=== PATIENT | female | born 1975 | race African-American/Black ===

== ENCOUNTER 2016-10-15 11:33 | Emergency (ER) | payer OTHER ==
[2016-10-15 11:58] VITALS: BP 128/84; PULSE 88; TEMP 98.3; BMI 32.1
--- NOTE | 2016-10-15 12:21 | PDOC ---
History of Present Illness - General History Source: Patient, Old Records Exam Limitations: No Limitations - History of Present Illness Initial Comments: 10/15/16 12:29 41-year-old female with history of hypertension, diabetes, bipolar disorder, peripheral vascular disease with foot gangrene and history of noncompliance sent from prison today for planned angioplasty of known FSA obstruction with Dr. Oliveros. The patient arrived to the emergency department with plans for OR, upon arrival she refused any interventions and demanded to be discharged. Discussed with Dr. Oliveros, who gave the above history and states the patient has long history of noncompliance and refusal of this procedure, this was actually the third attempt at scheduling. Patient understands full ramifications of not having her surgery, including worsening infection/gangrene, loss of limb, sepsis and . <Loyd Haro - Last Filed: 10/15/16 12:29> <Marfier Hercules - Last Filed: 10/15/16 12:41> - General Chief Complaint: Pain Stated Complaint: PRE-OP (PCP SENT) Time Seen by Provider: 10/15/16 12:21 Past History - Past Medical History Diabetes: Yes HTN: Yes Psychiatric Problems: Yes (depression,bipolar,paranoid schizoph) Other medical history: insomnia,anxeity,pvd - Surgical History Orthopedic Surgery: (rt bka) - Psycho/Social/Smoking Cessation Hx Anxiety: No Suicidal Ideation: No Smoking History: Current every day smoker Have you smoked in the past 12 months: Yes Number of Cigarettes Smoked Daily: 7 Cigars Per Day: 6 Information on smoking cessation initiated: Yes 'Breaking Loose' booklet given: 10/15/16 Hx Alcohol Use: No Drug/Substance Use Hx: No Substance Use Type: None <Loyd Haro - Last Filed: 10/15/16 12:29> <Marifer Hercules - Last Filed: 10/15/16 12:41> - Past Medical History Allergies/Adverse Reactions: Allergies Allergy/AdvReac Type Severity Reaction Status Date / Time Penicillins Allergy Severe Difficulty Verified 10/15/16 11:52 Breathing shellfish derived Allergy Severe Difficulty Verified 10/15/16 11:52 Breathing Home Medications: Ambulatory Orders Ativan 0.5 mg PO DAILY 08/14/16 Ativan 1 mg PO DAILY 08/14/16 Bacitracin DAILY 08/14/16 Cymbalta 60 mg PO DAILY 08/14/16 Depakote 500 mg PO BID 08/14/16 Lactobacillus Acidophilus 1 tab PO DAILY 08/14/16 Levemir Vial 28 units SCJ HS 08/14/16 Loperamide 2 mg PO QID PRN 08/14/16 Melatonin 5 mg PO HS 08/14/16 Milk of Magnesia 30 ml PO QID PRN 08/14/16 Senna 2 tab PO DAILY 08/14/16 Vitamin D3 1,000 units PO DAILY 08/14/16 Zyprexa 5 mg PO DAILY 08/14/16 Review of Systems - Review of Systems Able to Perform ROS?: (refused to answer) <Loyd Haro - Last Filed: 10/15/16 12:29> *Physical Exam - Vital Signs Last Vital Signs Temp Pulse Resp BP Pulse Ox 98.3 F 88 18 128/84 100 10/15/16 11:53 10/15/16 11:53 10/15/16 11:53 10/15/16 11:53 10/15/16 11:53 - Physical Exam Comments: 10/15/16 12:32 REFUSED <Loyd Haro - Last Filed: 10/15/16 12:29> - Vital Signs Last Vital Signs Temp Pulse Resp BP Pulse Ox 98.3 F 88 18 128/84 100 10/15/16 11:53 10/15/16 11:53 10/15/16 11:53 10/15/16 11:53 10/15/16 11:53 <Marifer Hercules - Last Filed: 10/15/16 12:41> Medical Decision Making - Medical Decision Making 10/15/16 12:33 41-year-old female with known foot gangrene from peripheral vascular disease, requires angioplasty and was scheduled with Dr. Oliveros today, sent from prison but now refusing to enter the ED and refusing care. I went to the waiting room to speak to the patient before she arranged for transportation back to the prison, we discussed her illness and pathology and all risks related to not proceeding with the intervention. She understands the scope of risk but is again refusing the angioplasty. She did not let me examine her, she will sign out AGAINST MEDICAL ADVICE. Again, this was discussed with Dr. Oliveros, states the patient has a recurring history of doing this. He will be in touch with the prison staff. Pt to sign out AMA She refused any and all interventions <Loyd Haro - Last Filed: 10/15/16 12:29> - Medical Decision Making 10/15/16 12:40 Report given back to [facility]. Staff is aware. <Marifer Hercules - Last Filed: 10/15/16 12:41> *DC/Admit/Observation/Transfer <Loyd Haro - Last Filed: 10/15/16 12:29> - Attestations Scribe Attestion: 10/15/16 12:41 Documentation prepared by Marifer Hercules, acting as medical office worker for Loyd Haro MD. <Marifer Hercules - Last Filed: 10/15/16 12:41> Diagnosis at time of Disposition: Peripheral vascular disease - Discharge Dispostion Disposition: AGAINST MEDICAL ADVICE - Referrals Referrals: Aleksander Bruno [Primary Care Provider] - - Patient Instructions Additional Instructions: Activity as tolerated. You were sent to the hospital to have a procedure for a clogged artery in your leg. This is affecting the blood flow to your foot. You have decided to not have the procedure as scheduled, so you must sign out against our medical advice. Without this intervention, your infection and gangrene can worsen, you can lose your limb, and the infection can spread and you could potentially . Continue medications as previously prescribed by your physician. You should follow up with your primary doctor as soon as possible regarding today's emergency department visit. Return to the emergency department for any new or concerning symptoms, particularly fevers or chills, pain or swelling, bleeding or pus.
== END 2016-10-15 12:40 | disposition left against medical advice (07) ==
LOC: JER 11:33
DX: I73.89 Other specified peripheral vascular diseases (principal); I10 Essential (primary) hypertension; E11.9 Type 2 diabetes mellitus without complications; F31.9 Bipolar disorder, unspecified; F20.0 Paranoid schizophrenia; F17.210 Nicotine dependence, cigarettes, uncomplicated
CPT/HCPCS: 99281-25

== ENCOUNTER 2019-08-07 12:08 | Emergency (ER) | payer OTHER ==
[2019-08-07 12:20] VITALS: BMI 26.4
[2019-08-07] MEDS ORDERED: DIVALPROEX SODIUM 500 MG TABLET E.C. PO ONE (12:36)
[2019-08-07] MEDS ORDERED: ACETAMINOPHEN 500 MG TABLET (FP) PO ONE (12:36)
--- NOTE | 2019-08-07 12:45 | PDOC ---
History of Present Illness - General Chief Complaint: CVA/TIA Stated Complaint: R/O STROKE Time Seen by Provider: 08/07/19 12:23 History Source: Patient - History of Present Illness Initial Comments: 08/07/19 12:40 44 yo F PMH of HTN, DM, PVD ( s/p below the knee amputation of leg), "blood disorder", TIA, Heart failure presents to ED for "having a stroke". Pt states this morning she had a stroke. She states that she knows because of blurred vision in her eye. she states she also has a headache. pt was not cooperative with obtaining proper history. she states she just doesnt feel right and is also having hematemesis and chest tightness. Past History - Past Medical History Allergies/Adverse Reactions: Allergies Allergy/AdvReac Type Severity Reaction Status Date / Time Penicillins Allergy Severe Difficulty Verified 08/07/19 12:10 Breathing shellfish derived Allergy Severe Difficulty Verified 08/07/19 12:10 Breathing Home Medications: Ambulatory Orders Ativan 1 mg PO DAILY 08/14/16 Cymbalta 60 mg PO DAILY 08/14/16 Depakote 500 mg PO BID 08/14/16 Lactobacillus Acidophilus 1 tab PO DAILY 08/14/16 Levemir Vial 28 units SCJ HS 08/14/16 Loperamide 2 mg PO QID PRN 08/14/16 Melatonin 5 mg PO HS 08/14/16 Milk of Magnesia 30 ml PO QID PRN 08/14/16 Senna 2 tab PO DAILY 08/14/16 Vitamin D3 1,000 units PO DAILY 08/14/16 Zyprexa 5 mg PO DAILY 08/14/16 COPD: No Diabetes: Yes HTN: Yes Psychiatric Problems: Yes (depression,bipolar,paranoid schizoph) - Surgical History Orthopedic Surgery: (rt bka) - Psycho Social/Smoking Cessation Hx Smoking History: Never smoked Have you smoked in the past 12 months: Yes Number of Cigarettes Smoked Daily: 7 Cigars Per Day: 6 Information on smoking cessation initiated: No 'Breaking Loose' booklet given: 10/15/16 Hx Alcohol Use: No Drug/Substance Use Hx: No Substance Use Type: None Review of Systems - Review of Systems Constitutional: Yes: Chills. No: Fever HEENTM: Yes: Eye Pain, Blurred Vision Respiratory: Yes: Shortness of Breath (states she has abdominal pain when she breathes.) Cardiac (ROS): Yes: Chest Tightness ABD/GI: Yes: Nausea, Vomiting, Abdominal cramping, Other (hematochezia ) Musculoskeletal: Yes: Muscle Weakness Neurological: Yes: Headache, Weakness Hematologic/Lymphatic: Yes: Blood Clots *Physical Exam - Vital Signs Last Vital Signs Temp Pulse Resp BP Pulse Ox 98.2 F 87 16 140/75 97 08/07/19 12:10 08/07/19 12:10 08/07/19 12:10 08/07/19 12:10 08/07/19 12:10 - Physical Exam General Appearance: Yes: Nourished, Appropriately Dressed, Obese HEENT: positive: Normal Voice, Symmetrical Respiratory/Chest: positive: Lungs Clear, Normal Breath Sounds. negative: Respiratory Distress, Accessory Muscle Use Cardiovascular: positive: Regular Rhythm, Regular Rate, S1, S2 Gastrointestinal/Abdominal: positive: Normal Bowel Sounds, Soft, Tenderness ( periumbilical ). negative: Distended Extremity: positive: Normal Inspection Integumentary: positive: Normal Color, Dry, Warm Neurologic: positive: Fully Oriented, Normal Response, Other (cranial nerves grossly intact, pt not cooperative with exam but seen moving all extremities and pulling herself up in bed. ). negative: Facial Droop ED Treatment Course - ADDITIONAL ORDERS Additional order review: Laboratory Results 08/07/19 12:16 POC Glucometer 475 08/07/19 12:16 POC Glucometer 475 Medical Decision Making - Medical Decision Making 08/07/19 12:47 44 yo F presents to ED for a " stroke" - no exam suspicion for stroke, pt does not cooperate for stroke scale although CN II-XII grossly intact, seen moving all extremities, no facial droop, no speech slurring. but will CT head , CBC, PT, PTT, INR -CMP, Cardiac profile, EKG. r/o ACS -will give home dose depakote for bipolar -tylenol for pain 08/07/19 13:07 -pt refusing all blood work but amenable to head CT 08/07/19 14:29 -CT results reviewed, moderate atrophy, chronic microvascular changes. no acute intracranial changes. 08/07/19 14:30 Discharge - Discharge Information Problems reviewed: Yes Clinical Impression/Diagnosis: Headache Qualifiers: Headache type: tension-type Headache chronicity pattern: acute headache Intractability: not intractable Qualified Code(s): G44.209 - Tension-type headache, unspecified, not intractable Condition: Good Disposition: HOME - Admission No - Follow up/Referral - Patient Discharge Instructions Patient Printed Discharge Instructions: DI for Headache Additional Instructions: You came into the hospital for a headache. We did a CT of your head showing that you did not have an acute stroke. Please continue to take your home medications as prescribed. Please follow up with your primary care physician within 1 week to monitor your improvement. If you have any new, worsening, or concerning symptoms please return to the ED. - Post Discharge Activity
--- NOTE | 2019-08-07 12:57 | PDOC ---
Attending Attestation - Resident Resident Name: Ira Ornelas - ED Attending Attestation I have performed the following: I have examined & evaluated the patient, The case was reviewed & discussed with the resident, I agree w/resident's findings & plan, Exceptions are as noted - HPI HPI: 08/07/19 12:52 44 F with h/o hypertension, diabetes, bipolar disorder, peripheral vascular disease, schizophrenia, presenting to ED for "stroke". Pt walked into ER stating that she was having a stroke. However, in ED, pt is uncooperative with history and exam. When asked why she believes she is having a stroke, she replied to staff that this was a "silly question" and instructed us to look at her left eye, which has a cataract. Pt refused to answer any additional questions or comply with physical exam. Pt instead requested we shut the curtains so that she could sleep in the stretcher. - Physicial Exam PE: 08/07/19 12:54 "GENERAL: Awake, alert, and fully oriented, in no acute distress. HEAD: No signs of trauma EYES: + L cataract, EOMI ENT: Pt refused exam NECK: Pt refused exam LUNGS: Pt refused exam HEART: Pt refused exam ABDOMEN: Pt refused exam EXTREMITIES: Pt refused exam NEUROLOGICAL: Cranial nerves II through XII intact. 5/5 strength and sensation in all extremities, Normal speech, normal gait SKIN: Warm, Dry, normal turgor, no rashes or lesions noted. - Medical Decision Making 08/07/19 12:57 44 F presenting for evaluation of "I'm having a stroke". No neuro deficits found on exam. Pt observed walking in ED with steady gait, moving all extremities. All cranial nerves intact, speech normal. Suspicious for malingering. I spoke with ED physician at [facility], who confirmed that pt was in their ED yesterday for a complaint of abdominal pain. However, she refused examination and bloodwork/CT at that time and walked out prior to completion of their evaluation. - Will check head CT and basic bloodwork - Pt requesting tylenol and home dose of depakote 08/07/19 13:03 Pt refusing all bloodwork here Is amenable to head CT 08/07/19 14:27 CT head unremarkable Fingerstick here was elevated. However, pt refusing further work up.
[2019-08-07 14:51] VITALS: BP 151/103; PULSE 89; TEMP 98
== END 2019-08-07 14:50 | disposition home or self-care (01) ==
LOC: JER 12:08
DX: G44.209 Tension-type headache, unspecified, not intractable (principal); Z87.891 Personal history of nicotine dependence; E11.9 Type 2 diabetes mellitus without complications; I10 Essential (primary) hypertension; F32.9 Major depressive disorder, single episode, unspecified
CPT/HCPCS: 70450-TC; 82962; 99282-25